=== PATIENT | female | born 1935 | race Caucasian/White ===

== ENCOUNTER 2020-07-09 10:12 | Inpatient (IN) | payer MEDICARE ==
[2020-07-09 10:42] LABS: BASOPHIL 0.6 % (0-2); EOSINOPHIL 0.5 % (0-7); HCT 36.4 % (37.0-47.0); HGB 11.5 g/dl (12.5-16.0); LYMPHOCYTE 8.9 % (15-48); MCH 31.1 pg (25.0-31.0); MCHC 31.6 g/dL (32.0-36.0); MCV 98.4 fL (78.0-100.0); MPV 9.2 fL (6.0-9.5); NEUTROPHIL 82.7 % (41-80); NRBC 0; PLT 229 K/uL (150-400); RDW 13.4 % (11.5-14.0); WBC 9.8 K/uL (4.0-10.5)
[2020-07-09 11:12] LABS: INR 1.04 (0.9-1.2); PROTHROMBIN TIME 12.9 SECONDS (11.4-13.6)
[2020-07-09 11:38] LABS: ALBUMIN 2.9 g/dL (3.4-5.0); BILIRUBIN - TOTAL 1.5 mg/dL (0.2-1.0); BUN/CREAT RATIO (CALC) 14.3 RATIO; CREATININE 1.33 mg/dL (0.51-0.95); GLOBULIN (CALCULATION) 3.6 g/dL; TOTAL PROTEIN 6.5 g/dL (6.4-8.2)
[2020-07-09 12:28] LABS: CORONAVIRUS 2019 SARS-COV-2 NEGATIVE (NEGATIVE); INFLUENZA A NAA NEGATIVE (NEGATIVE)
[2020-07-09 13:36] LABS: LACTIC ACID 2.4 mmol/L (0.4-1.9)
[2020-07-09] MEDS ORDERED: BYSTOLIC5 MG PO (16:06)
[2020-07-09] MEDS ORDERED: PROZAC20 MG PO (16:07)
[2020-07-09] MEDS ORDERED: NAMENDA 10MG TA10 MG PO (16:10)
[2020-07-09] MEDS ORDERED: [UNRECOGNIZED DRUG - OTHER] PO (16:10)
[2020-07-10 03:26] LABS: BASOPHIL 0.5 % (0-2); EOSINOPHIL 0.1 % (0-7); HCT 34.6 % (37.0-47.0); HGB 10.9 g/dl (12.5-16.0); LYMPHOCYTE 10.2 % (15-48); MCH 31.4 pg (25.0-31.0); MCHC 31.5 g/dL (32.0-36.0); MCV 99.7 fL (78.0-100.0); MONOCYTE 9.2 % (0-12); MPV 9.3 fL (6.0-9.5); NEUTROPHIL 79.8 % (41-80); NRBC 0; PLT 204 K/uL (150-400); RBC 3.47 M/uL (4.20-5.40); RDW 13.6 % (11.5-14.0); WBC 8.1 K/uL (4.0-10.5)
[2020-07-10 03:44] LABS: ALBUMIN 2.6 g/dL (3.4-5.0); BILIRUBIN - TOTAL 1.5 mg/dL (0.2-1.0); BUN/CREAT RATIO (CALC) 17.6 RATIO; CREATININE 1.25 mg/dL (0.51-0.95); GLOBULIN (CALCULATION) 3.9 g/dL; MAGNESIUM 1.9 mg/dL (1.8-2.4); POTASSIUM 3.7 mmol/L (3.5-5.1); TOTAL PROTEIN 6.5 g/dL (6.4-8.2)
[2020-07-11 04:47] LABS: BASOPHIL 0.6 % (0-2); EOSINOPHIL 0.1 % (0-7); HCT 30.6 % (37.0-47.0); HGB 9.8 g/dl (12.5-16.0); LYMPHOCYTE 11.1 % (15-48); MCH 31.3 pg (25.0-31.0); MCV 97.8 fL (78.0-100.0); MONOCYTE 9.5 % (0-12); MPV 9.8 fL (6.0-9.5); NEUTROPHIL 78.2 % (41-80); NRBC 0; PLT 205 K/uL (150-400); RBC 3.13 M/uL (4.20-5.40); RDW 13.8 % (11.5-14.0); WBC 8.6 K/uL (4.0-10.5)
[2020-07-11 05:02] LABS: BUN/CREAT RATIO (CALC) 15.9 RATIO; CREATININE 1.51 mg/dL (0.51-0.95); POTASSIUM 4.2 mmol/L (3.5-5.1)
[2020-07-12 04:35] LABS: BASOPHIL 0.4 % (0-2); EOSINOPHIL 0.6 % (0-7); HCT 27.4 % (37.0-47.0); HGB 9.1 g/dl (12.5-16.0); LYMPHOCYTE 10.2 % (15-48); MCH 31.8 pg (25.0-31.0); MCHC 33.2 g/dL (32.0-36.0); MCV 95.8 fL (78.0-100.0); MONOCYTE 9.5 % (0-12); MPV 9.7 fL (6.0-9.5); NEUTROPHIL 78.9 % (41-80); NRBC 0; PLT 206 K/uL (150-400); RBC 2.86 M/uL (4.20-5.40); RDW 13.8 % (11.5-14.0); WBC 7.9 K/uL (4.0-10.5)
[2020-07-12 04:52] LABS: ALBUMIN 2.2 g/dL (3.4-5.0); BUN/CREAT RATIO (CALC) 17.5 RATIO; CREATININE 1.66 mg/dL (0.51-0.95); GLOBULIN (CALCULATION) 3.7 g/dL; MAGNESIUM 1.7 mg/dL (1.8-2.4); POTASSIUM 3.5 mmol/L (3.5-5.1); TOTAL PROTEIN 5.9 g/dL (6.4-8.2)
[2020-07-12 19:56] LABS: BILIRUBIN NEGATIVE (NEGATIVE); BLOOD 3+ Ery/uL (NEGATIVE); CLARITY CLOUDY (CLEAR); COLOR BROWN (YELLOW); GLUCOSE (U) NORMAL (NORMAL); LEUKOCYTES 1+ Leu/uL (NEGATIVE); NITRITE POSITIVE (NEGATIVE); PROTEIN 2+ mg/dL (NEGATIVE); SPECIFIC GRAVITY 1.025 (1.001-1.030)
[2020-07-12 20:02] LABS: URINARY RBC TNTC
[2020-07-12 20:03] LABS: AMORPHOUS URATES CRYSTALS MODERATE; BACTERIA 1+
[2020-07-12 20:09] LABS: URINE CREATININE 211.78 mg/dL (29.00-226.00); URINE TOTAL PROTEIN-RANDOM 156.5 mg/dL (<11.9)
[2020-07-13] MEDS ORDERED: ELIQUIS5 MG PO (11:50)
[2020-07-14 08:12] LABS: BASOPHIL 0.8 % (0-2); HCT 28.2 % (37.0-47.0); HGB 8.9 g/dl (12.5-16.0); LYMPHOCYTE 13.2 % (15-48); MCH 31.1 pg (25.0-31.0); MCHC 31.6 g/dL (32.0-36.0); MCV 98.6 fL (78.0-100.0); MONOCYTE 9.4 % (0-12); MPV 9.7 fL (6.0-9.5); NEUTROPHIL 74.2 % (41-80); NRBC 0; PLT 264 K/uL (150-400); RBC 2.86 M/uL (4.20-5.40); RDW 13.9 % (11.5-14.0); WBC 5.1 K/uL (4.0-10.5)
[2020-07-14] MEDS ORDERED: LOPRESSOR25 MG PO (08:21)
[2020-07-14] MEDS ORDERED: CARDIZEM CD240 MG PO (08:21)
[2020-07-14 08:34] LABS: BUN/CREAT RATIO (CALC) 18.3 RATIO; CREATININE 1.26 mg/dL (0.51-0.95); POTASSIUM 4.4 mmol/L (3.5-5.1)
[2020-07-14] MEDS ORDERED: ELIQUIS5 MG PO (10:23)
== END 2020-07-14 15:30 | disposition home health service (06) | DRG 175 ==
LOC: FER 10:12 → FICU 12:33 → FTCU 07-13 08:48
PROVIDERS: Allergy & Immunology Allergy; Emergency Medicine; ADMIT Internal Medicine
DX: I26.99 Other pulmonary embolism without acute cor pulmonale (principal); J96.91 Respiratory failure, unspecified with hypoxia; N17.9 Acute kidney failure, unspecified; N39.0 Urinary tract infection, site not specified; I50.22 Chronic systolic (congestive) heart failure; I48.20 Chronic atrial fibrillation, unspecified; I51.3 Intracardiac thrombosis, not elsewhere classified; I11.0 Hypertensive heart disease with heart failure; F03.90 Unspecified dementia, unspecified severity, without behavioral disturbance, psychotic disturbance, mood disturbance, and anxiety; Z96.653 Presence of artificial knee joint, bilateral; Z20.822 Contact with and (suspected) exposure to COVID-19; F32.9 Major depressive disorder, single episode, unspecified; F41.9 Anxiety disorder, unspecified; Z88.0 Allergy status to penicillin; Z88.8 Allergy status to other drugs, medicaments and biological substances; Z90.49 Acquired absence of other specified parts of digestive tract; Z90.710 Acquired absence of both cervix and uterus; Z79.899 Other long term (current) drug therapy
CPT/HCPCS: 36415; 36600; 71045; 71275; 80048; 80053; 81001; 82570; 82803; 83605; 83735; 83880; 84145; 84156; 84300; 84484; 85025; 85610; 85730; 87088; 93005; 93970; 97162; 97530-GP; J0696; J1644; J1650; J1940; J3475; J7030; Q9967; U0002

== ENCOUNTER 2021-10-13 14:03 | Emergency (ER) | payer MEDICARE ==
[~2021-10-13 14:03] MED LIST: BYSTOLIC5 MG PO; CARDIZEM CD240 MG PO; ELIQUIS5 MG PO; LOPRESSOR25 MG PO; NAMENDA 10MG TA10 MG PO; PROZAC20 MG PO; [UNRECOGNIZED DRUG - OTHER] PO
[2021-10-13 14:59] LABS: BASOPHIL 1.1 % (0-2); HCT 35.7 % (37.0-47.0); HGB 11.4 g/dl (12.5-16.0); LYMPHOCYTE 19.8 % (15-48); MCH 31.1 pg (25.0-31.0); MCHC 31.9 g/dL (32.0-36.0); MCV 97.3 fL (78.0-100.0); MONOCYTE 10.1 % (0-12); NEUTROPHIL 66.8 % (41-80); NRBC 0; PLT 293 K/uL (150-400); RBC 3.67 M/uL (4.20-5.40); RDW 13.2 % (11.5-14.0); WBC 6.4 K/uL (4.0-10.5)
[2021-10-13 15:04] LABS: INR 1.23 (0.9-1.2); PROTHROMBIN TIME 15.1 SECONDS (11.9-13.9); PTT 27.7 SECONDS (24.9-34.6)
[2021-10-13 15:26] LABS: ALBUMIN 3.3 g/dL (3.4-5.0); BILIRUBIN - TOTAL 0.8 mg/dL (0.2-1.0); BUN/CREAT RATIO (CALC) 16.9 RATIO; CREATININE 1.18 mg/dL (0.51-0.95); GLOBULIN (CALCULATION) 3.7 g/dL; POTASSIUM 4.2 mmol/L (3.5-5.1)
[2021-10-13] MEDS ORDERED: LASIX20 MG PO (18:06)
[2021-10-13] MEDS ORDERED: POTASSIUM CHLO20 ME1 PO (18:06)
== END 2021-10-13 18:15 | disposition home or self-care (01) ==
LOC: FER 14:03
PROVIDERS: Emergency Medicine
DX: I11.0 Hypertensive heart disease with heart failure (principal); I50.9 Heart failure, unspecified; J44.9 Chronic obstructive pulmonary disease, unspecified; Z79.01 Long term (current) use of anticoagulants; Z79.899 Other long term (current) drug therapy
CPT/HCPCS: 36415; 71045; 80053; 83880; 84484; 85025; 85610; 85730; J1940